=== PATIENT | male | born 1975 ===

== ENCOUNTER 2020-06-11 23:46 | Emergency (ER) | payer BC, SELFPAY ==
--- NOTE | ~2020-06-11 | XR_ITS ---
EXAMINATION: XR CHEST CLINICAL INFORMATION: Palpitations COMPARISON: 05/06/2019 TECHNIQUE: Frontal view of the chest was obtained. FINDINGS: No significant abnormality is noted involving the heart, lungs, mediastinum, bony thorax or soft tissues. XR/XR chest 1V IMPRESSION: Unremarkable examination.
[2020-06-11 23:59] VITALS: BP 174/88; PULSE 100; RESP 18; TEMP 36.3; O2SAT 98; BMI 26.6
--- NOTE | 2020-06-11 23:59 | ECG_ITS ---
Test Reason : HEART PALPITATIONS Blood Pressure : / mmHG Vent. Rate : 088 BPM Atrial Rate : 088 BPM P-R Int : 146 ms QRS Dur : 102 ms QT Int : 370 ms P-R-T Axes : 064 057 030 degrees QTc Int : 447 ms Normal sinus rhythm Normal ECG When compared with ECG of 19-NOV-2018 16:57, Non-specific change in ST segment in Inferior leads Referred By: Daya Almanzar Electronically Signed By:ROSA MARIA CANNON MD
--- NOTE | 2020-06-11 23:59 | ED.ARRPALP ---
HPI - Arrhythmia/Palpitations General Chief Complaint: Arrhythmia/Palpitations Stated Complaint: ?Irregular heartbeat Time Seen by Provider: 06/11/20 23:54 History of Present Illness complaint: skipped beats and palpitations Onset (ago): week(s) (1) Duration: intermittent Severity: moderate Context: occurred during rest and occurred during exertion Associated symptoms: chest pain and shortness of breath Related Data Previous Rx's Medication Instructions Recorded metoprolol succinate [Toprol XL] 12.5 mg PO DAILY #14 tab 06/12/20 Allergies Allergy/AdvReac Type Severity Reaction Status Date / Time No Known Allergies Allergy Verified 06/11/20 23:59 Review of Systems Review of Systems: Constitutional : No Weight loss, No Fever, No Chills ENT/Mouth : No sore throat, No Rhinorrhea Eyes: No Eye Pain, No Swelling Cardiovascular : pos Chest Pain, pos SOB, no Dyspnea on Exertion, No Orthopnea, No Edema, pos Palpitations Respiratory : No Cough, No Sputum Gastrointestinal : no Nausea, No Vomiting, No Diarrhea, No abdominal Pain, No Hematochezia, No Melena Genitourinary : No Dysuria, No Urinary Frequency Musculoskeletal : No joint pain, No Myalgias, No Joint Swelling Skin : No Skin Lesions, No rash Neuro : No Weakness, No Numbness, No Dizziness, No Headache Psych : No Anxiety/Panic, No Depression All other systems reviewed and are negative [facility] Past Medical History Attestation statement: The following information was validated with the patient. Medical History No active medical problems Social History Social History (Updated 06/12/20 @ 00:02 by Daya Almanzar DO) Smoking Status: Never smoker Use of substances other than those prescribed or required for medical reasons: No Advance Directives: No Physical Exam Vital Signs: Vital Signs: Last Vital Signs Temp 97.4 F 06/11/20 23:59 Pulse 97 06/12/20 00:45 Resp 19 06/12/20 00:45 BP 129/78 06/12/20 00:45 Pulse Ox 98 06/12/20 00:45 Body Mass Index 26.6 Appearance: Alert. Oriented X3. No acute distress. Anxious Eyes: Pupils equal, round and reactive to light. ENT: Pharynx normal. Neck: Normal inspection. Neck supple. CVS: Normal heart rate and rhythm. Pulses normal. Respiratory: No respiratory distress. Breath sounds normal. Abdomen: Soft and nontender. Skin: Skin warm and dry. Normal skin color. Normal skin turgor. Extremities: No lower extremity edema. No calf ttp Neuro: Oriented X 3. No motor deficit. No sensory deficit. Course Course Course Narrative: patient having frequent PVCs while in ED states he feels a thud given symptomatic will start on low dose bblocker and refer to cardiology MDM - Arrhythmia/Palpitations MDM Narrative Medical decision making narrative: 45 yo male with one week of intermittent palpitations worse today - some mild chest discomfort and dyspnea, states he feels his heart skips a beat - has had occ PVCs on tele during interview likely cause of his palpitations denies medications/ingestion/stress/caffeine usage - will obtain labs, CXR, ddimer, troponin x 1, possible start of bblocker if still symptomatic Lab Data Result diagrams: 06/12/20 00:05 06/12/20 00:05 Labs: Lab Results 06/12/20 06/12/20 06/12/20 Range/Units 00:05 00:05 00:05 WBC 7.0 (4.8-10.8) X10*3/uL RBC 5.07 (4.60-5.80) X10*6/uL Hgb 15.9 (14.0-18.0) g/dl Hct 44.9 (42-52) % MCV 88.6 (80-98) fL MCH 31.4 (27.0-33.0) pg MCHC 35.4 (31.0-36.0) g/dl RDW 11.2 (11.0-16.0) % Plt Count 248 (160-400) X10*3/uL MPV 9.9 (9.4-12.4) fL Immature Gran % (Auto) 0.1 (0.0-0.4) % Neut % (Auto) 53.9 (45-73) % Lymph % (Auto) 36.0 (20-40) % [place] % (Auto) 8.3 (2-11) % Eos % (Auto) 1.1 (0-4) % Baso % (Auto) 0.6 (0-2) % Lymph # (Auto) 2.5 (1.2-4.9) X10*3/uL [place] # (Auto) 0.6 (0.1-1.2) X10*3/uL Eos # (Auto) 0.1 (0.0-0.4) X10*3/uL Baso # (Auto) 0.0 (0.0-0.2) X10*3/uL Abs Immat Gran (auto) 0.01 (0.00-0.03) X10*3/uL Absolute Neuts (auto) 3.8 (2.0-8.3) X10*3/uL Absolute Nucleated RBC 0.000 (0.0-0.012) X10*3/uL Nucleated RBC % (auto) 0.0 (0.0-0.2) /100WBC D-Dimer < 200 NG/ML Sodium 137 (135-145) mmol/L Potassium 4.1 (3.3-5.1) mmol/L Chloride 99 (96-108) mmol/L Carbon Dioxide 28 (22-29) mmol/L Anion Gap 14 (12-20) BUN 20 H (9-16) mg/dL Creatinine 1.31 (0.5-1.4) mg/dL Estim Creat Clear Calc 66.5 Estimated GFR 59 Random Glucose 117 H (60-115) mg/dL Calcium 9.4 (8.4-10.2) mg/dL Magnesium 2.1 (1.6-2.6) mg/dL Troponin I High Sens (<3.5-35.0) ng/L B-Natriuretic Peptide (<100) pg/mL 06/12/20 Range/Units 00:05 WBC (4.8-10.8) X10*3/uL RBC (4.60-5.80) X10*6/uL Hgb (14.0-18.0) g/dl Hct (42-52) % MCV (80-98) fL MCH (27.0-33.0) pg MCHC (31.0-36.0) g/dl RDW (11.0-16.0) % Plt Count (160-400) X10*3/uL MPV (9.4-12.4) fL Immature Gran % (Auto) (0.0-0.4) % Neut % (Auto) (45-73) % Lymph % (Auto) (20-40) % [place] % (Auto) (2-11) % Eos % (Auto) (0-4) % Baso % (Auto) (0-2) % Lymph # (Auto) (1.2-4.9) X10*3/uL [place] # (Auto) (0.1-1.2) X10*3/uL Eos # (Auto) (0.0-0.4) X10*3/uL Baso # (Auto) (0.0-0.2) X10*3/uL Abs Immat Gran (auto) (0.00-0.03) X10*3/uL Absolute Neuts (auto) (2.0-8.3) X10*3/uL Absolute Nucleated RBC (0.0-0.012) X10*3/uL Nucleated RBC % (auto) (0.0-0.2) /100WBC D-Dimer NG/ML Sodium (135-145) mmol/L Potassium (3.3-5.1) mmol/L Chloride (96-108) mmol/L Carbon Dioxide (22-29) mmol/L Anion Gap (12-20) BUN (9-16) mg/dL Creatinine (0.5-1.4) mg/dL Estim Creat Clear Calc Estimated GFR Random Glucose (60-115) mg/dL Calcium (8.4-10.2) mg/dL Magnesium (1.6-2.6) mg/dL Troponin I High Sens < 3.5 (<3.5-35.0) ng/L B-Natriuretic Peptide < 10 (<100) pg/mL ECG Data Attestation: I personally reviewed and interpreted this ECG as follows: ECG interpretation date: 06/12/20 ECG interpretation time: 00:00 Interpretation: Rate: 88 Rhythm: NSR [place]: normal Normal P waves. Normal CIRO. Normal QRS complex. ST T wave : normal, no JAMAL qTC: normal no acute ischemia The study has been interpreted contemporaneously by me. . Discharge Plan Discharge Clinical Impression: Frequent PVCs Patient Disposition: Home, Self-Care Instructions: Premature Ventricular Contractions (ED) Additional Instructions: return to ED for any worsening symptoms or concerns will trial 2 weeks of medication to see if it helps, call your primary care so they can monitor you. Prescriptions: New metoprolol succinate [Toprol XL] 25 mg tablet extended release 24 hr 12.5 mg PO DAILY Qty: 14 RF: 0 Referrals: Marvin Gómez MD [Physician] - 1 week Stand Alone Forms: Work/School Release
[2020-06-12 00:10] LABS: MANUAL DIFF FLAG NO
[2020-06-12 00:16] LABS: Basophils Percent Auto 0.6 % (0-2); Eosinophils Absolute Auto 0.1 X10*3/uL (0.0-0.4); Eosinophils Percent Auto 1.1 % (0-4); Hematocrit 44.9 % (42-52); Hemoglobin 15.9 g/dl (14.0-18.0); Imm Gran Abs Auto 0.01 X10*3/uL (0.00-0.03); Imm Gran Pct Auto 0.1 % (0.0-0.4); Lymphocytes Absolute Auto 2.5 X10*3/uL (1.2-4.9); Mean Corpuscular HGB Conc 35.4 g/dl (31.0-36.0); Mean Corpuscular Hemoglobin 31.4 pg (27.0-33.0); Mean Corpuscular Volume 88.6 fL (80-98); Mean Platelet Volume 9.9 fL (9.4-12.4); Monocytes Absolute Auto 0.6 X10*3/uL (0.1-1.2); Monocytes Percent Auto 8.3 % (2-11); Neutrophils Absolute Auto 3.8 X10*3/uL (2.0-8.3); Neutrophils Percent Auto 53.9 % (45-73); Platelet Count 248 X10*3/uL (160-400); Red Blood Count 5.07 X10*6/uL (4.60-5.80); Red Cell Distribution Width 11.2 % (11.0-16.0)
[2020-06-12 00:30] LABS: D Dimer < 200 NG/ML
[2020-06-12 00:36] LABS: Anion Gap 14 (12-20); Blood Urea Nitrogen 20 mg/dL (9-16); Calcium 9.4 mg/dL (8.4-10.2); Carbon Dioxide 28 mmol/L (22-29); Chloride 99 mmol/L (96-108); Creatinine Clr Calc Pharmacy 66.5; Estimated Glomerular Filt Rate 59; Glucose Random 117 mg/dL (60-115); Magnesium 2.1 mg/dL (1.6-2.6); Potassium 4.1 mmol/L (3.3-5.1); Sodium 137 mmol/L (135-145)
[2020-06-12 00:41] LABS: B Type Natriuretic Peptide < 10 pg/mL (<100); Troponin-I High Sensitivity < 3.5 ng/L (<3.5-35.0)
[2020-06-12 00:45] VITALS: BP 129/78; PULSE 97; RESP 19; O2SAT 98
[2020-06-12 00:57] LABS: Thyroid Stimulating Hormone 3.95 uIU/mL (0.32-4.0)
[2020-06-12 01:09] VITALS: PULSE 76
== END 2020-06-12 01:20 | disposition home or self-care (01) ==
PROVIDERS: Emergency Provider Emergency Medicine; PCP Internal Medicine
DX: I49.3 Ventricular premature depolarization (principal); Z79.899 Other long term (current) drug therapy
CPT/HCPCS: 36415; 71045; 80048; 83735; 83880; 84443; 84484; 85025; 85379; 93005; 99283; 99284

== ENCOUNTER 2022-01-20 19:07 | Emergency (ER) | payer BC, SELFPAY ==
--- NOTE | ~2022-01-20 | US_ITS ---
EXAMINATION: US VENOUS ULTRASOUND WITH DOPPLER LOWER EXTREMITY, RIGHT CLINICAL INFORMATION: Right calf pain COMPARISON: None TECHNIQUE: Ultrasound of the deep veins is performed from the hip to the calf with compression sonography and color and pulse Doppler assessment. Spectral analysis with color-flow imaging is performed. FINDINGS: There is normal venous compression and respiratory variation and augmented flow. The visualized common femoral vein, superficial femoral vein, profunda femoral vein, popliteal vein, and the trifurcation region shows no evidence of deep venous thrombosis. The contralateral left common femoral vein appears normal. There is no significant popliteal fossa cyst. Large thrombosed superficial varicosities are seen in the right calf. If the patient's symptoms persist, followup ultrasound in 5 days 7 days might be of value to exclude proximal propagation from a non-visualized calf vein. US/US venous duplex LE RT IMPRESSION: * No DVT demonstrated in the right lower extremity. * Superficial thrombophlebitis with thrombosed right calf varices.
[2022-01-20 21:14] VITALS: BP 133/67; PULSE 81; RESP 18; TEMP 36.9; O2SAT 99; BMI 25.0
[2022-01-20 21:27] LABS: Hematocrit 42.1 % (42.0-52.0); Hemoglobin 14.8 g/dl (14.0-18.0); Mean Corpuscular HGB Conc 35.2 g/dl (31.0-36.0); Mean Corpuscular Hemoglobin 31.2 pg (27.0-33.0); Mean Corpuscular Volume 88.6 fL (80.0-98.0); Mean Platelet Volume 9.8 fL (9.4-12.4); Platelet Count 228 X10*3/uL (160-400); Red Blood Count 4.75 X10*6/uL (4.60-5.80); Red Cell Distribution Width 11.7 % (11.0-16.0); White Blood Count 6.7 X10*3/uL (4.8-10.8)
--- NOTE | 2022-01-20 21:30 | ED.GENADULT ---
HPI - General Adult General Chief complaint: General Medical Stated complaint: right calf pain Time Seen by Provider: 01/20/22 19:22 History of Present Illness HPI narrative: Patient is a 47-year-old male with a being varicose veins. Presents today with having pain to the right calf area. Slight area of redness warm to touch. Patient is from home. No history of blood clots in the past. Positive history of hypertension no history of shortness of breath no chest pain no dizziness no syncope. Patient not on any blood thinners. Related Data Previous Rx's Medication Instructions Recorded metoprolol succinate 25 mg 12.5 mg PO DAILY #14 tabs 06/12/20 tablet,extended release 24 hr (Toprol XL) ibuprofen 400 mg tablet 400 mg PO Q6H PRN pain #20 tabs 01/20/22 Allergies Allergy/AdvReac Type Severity Reaction Status Date / Time No Known Allergies Allergy Verified 06/11/20 23:59 Review of Systems Review of Systems: Positive pain to the right calf Yes all other systems are reviewed and are negative PMFSH Past Medical History Attestation statement: The following information was validated with the patient. Medical History No active medical problems Social History Social History Alcohol intake: never Advance Directives: No Advance Directives Information Provided: No Physical Exam ED Vital Signs: Vital Signs - 24 hr 01/20/22 21:14 01/20/22 21:57 Temperature 98.4 F 98.3 F Pulse Rate 81 78 Respiratory Rate 18 18 Blood Pressure 133/67 130/73 Pulse Oximetry 99 98 Oxygen Delivery Method Room Air Room Air BMI result Body Mass Index 25.0 Appearance: Alert. Oriented X3. No acute distress. Eyes: Pupils equal, round and reactive to light. ENT: Pharynx normal. Neck: Normal inspection. Neck supple. No lymph nodes noted. No crepitus CVS: Normal heart rate and rhythm. Pulses normal. Normal S1 and S2 Respiratory: No respiratory distress. Breath sounds normal. No Wheezing. No rales Abdomen: Soft and nontender. No rigidity. No distention. good BS x4 Skin: Skin warm and dry. Normal skin color. Normal skin turgor. Examination of the right lower extremity showed minimal redness over the calf in an area that appears to have a superficial vein. It is approximately 3 cm x 3 cm in size slightly red indurated. There is no calf tenderness. Calf size equal bilaterally. Distal pulses intact. Skin intact. Motor intact Extremities: No lower extremity edema. Neurovascular intact to all extremities. No Lacerations. No Rash Neuro: Oriented X 3. No motor deficit. No sensory deficit. Moving all extermities. No slurred speech Medical Decision Making MDM Narrative Medical decision making narrative: Doppler ultrasound of the right lower extremity was grossly negative for any acute evidence of DVT. Superficial thrombophlebitis was noted. We will go ahead have patient elevate the lower extremity warm compresses and have patient use NSAIDs. In stable condition. Lab Data Lab results reviewed: Yes I reviewed the patient's lab results. Result diagrams: 01/20/22 21:15 01/20/22 21:15 Labs: Lab Results 01/20/22 01/20/22 Range/Units 21:15 21:15 WBC 6.7 (4.8-10.8) X10*3/uL RBC 4.75 (4.60-5.80) X10*6/uL Hgb 14.8 (14.0-18.0) g/dl Hct 42.1 (42.0-52.0) % MCV 88.6 (80.0-98.0) fL MCH 31.2 (27.0-33.0) pg MCHC 35.2 (31.0-36.0) g/dl RDW 11.7 (11.0-16.0) % Plt Count 228 (160-400) X10*3/uL MPV 9.8 (9.4-12.4) fL Absolute Nucleated RBC 0.000 (0.0-0.012) X10*3/uL Nucleated RBC % (auto) 0.0 (0.0-0.2) /100WBC Sodium 142 (135-145) mmol/L Potassium 4.3 (3.3-5.1) mmol/L Chloride 101 (96-108) mmol/L Carbon Dioxide 32 H (22-29) mmol/L Anion Gap 13 (12-20) BUN 12 (9-16) mg/dL Creatinine 1.20 (0.5-1.4) mg/dL Estim Creat Clear Calc 71.1 Estimated GFR > 60 Random Glucose 118 H (60-115) mg/dL Calcium 9.3 (8.4-10.2) mg/dL Total Bilirubin 0.6 (0.0-1.0) mg/dL AST 18 (5-37) U/L ALT 16 (0-40) U/L Alkaline Phosphatase 77 (39-117) U/L Total Protein 7.2 (6.5-8.0) g/dL Albumin 4.5 (3.5-5.0) g/dL Discharge Plan Discharge Clinical Impression: Superficial thrombophlebitis Patient Disposition: Home, Self-Care Instructions: Superficial Thrombophlebitis (ED) Prescriptions: New ibuprofen 400 mg tablet 400 mg PO Q6H PRN (Reason: pain) Qty: 20 0RF No Action metoprolol succinate [Toprol XL] 25 mg tablet extended release 24 hr 12.5 mg PO DAILY Qty: 14 0RF Referrals: Andrew Sol MD [Primary Care Provider] -
[2022-01-20 21:51] LABS: Alanine Aminotransferase 16 U/L (0-40); Albumin Level 4.5 g/dL (3.5-5.0); Alkaline Phosphatase 77 U/L (39-117); Anion Gap 13 (12-20); Aspartate Amino Transferase 18 U/L (5-37); Bilirubin Total 0.6 mg/dL (0.0-1.0); Blood Urea Nitrogen 12 mg/dL (9-16); Calcium 9.3 mg/dL (8.4-10.2); Carbon Dioxide 32 mmol/L (22-29); Chloride 101 mmol/L (96-108); Creatinine Clr Calc Pharmacy 71.1; Estimated Glomerular Filt Rate > 60; Glucose Random 118 mg/dL (60-115); Potassium 4.3 mmol/L (3.3-5.1); Sodium 142 mmol/L (135-145); Total Protein 7.2 g/dL (6.5-8.0)
[2022-01-20 21:57] VITALS: BP 130/73; PULSE 78; RESP 18; TEMP 36.8; O2SAT 98
== END 2022-01-20 22:26 | disposition home or self-care (01) ==
PROVIDERS: Emergency Provider Emergency Medicine Emergency Medical Services; PCP Internal Medicine
DX: I80.01 Phlebitis and thrombophlebitis of superficial vessels of right lower extremity (principal); M79.661 Pain in right lower leg; I10 Essential (primary) hypertension
CPT/HCPCS: 36415; 80053; 85027; 93971; 99283; 99284

== ENCOUNTER 2022-03-09 16:11 | Emergency (ER) | payer SELFPAY ==
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
[2022-03-09 16:33] VITALS: BP 146/80; BP 156/86; PULSE 100; PULSE 94; RESP 16; TEMP 36.7; O2SAT 100; O2SAT 99; BMI 25.0
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
--- NOTE | 2022-03-09 17:00 | ECG_ITS ---
Test Reason : CHEST PAIN Blood Pressure : / mmHG Vent. Rate : 077 BPM Atrial Rate : 077 BPM P-R Int : 150 ms QRS Dur : 106 ms QT Int : 380 ms P-R-T Axes : 055 029 027 degrees QTc Int : 430 ms Normal sinus rhythm with sinus arrhythmia Normal ECG When compared with ECG of 11-JUN-2020 23:57, No significant change was found Referred By: Nuha Ramos Electronically Signed By:GINGER KILPATRICK MD
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
[2022-03-09] MEDS: Cyclobenzaprine HCl 5 MG TABLET PO (17:37)
[2022-03-09] MEDS: Ibuprofen 600 MG TABLET PO (17:38)
== END 2022-03-09 19:13 | disposition home or self-care (01) ==
PROVIDERS: Emergency Provider Emergency Medicine; PCP Internal Medicine
DX: S20.219A Contusion of unspecified front wall of thorax, initial encounter (principal); V43.53XA Car driver injured in collision with pick-up truck in traffic accident, initial encounter; W22.11XA Striking against or struck by driver side automobile airbag, initial encounter; Y93.89 Activity, other specified; Y92.411 Interstate highway as the place of occurrence of the external cause; Y99.9 Unspecified external cause status
CPT/HCPCS: 70450; 71045; 93005; 99284

== ENCOUNTER 2023-05-01 06:28 | Emergency (ER) | payer BC, SELFPAY ==
[2023-05-01 07:10] VITALS: BP 164/84; PULSE 81; RESP 18; TEMP 36.9; O2SAT 96; BMI 27.9
[2023-05-01 07:59] LABS: Influenza A PCR NEGATIVE (Negative); Influenza B PCR NEGATIVE (Negative); Resp Syncy Virus RNA Qual PCR NEGATIVE (Negative); SARS COV2 PCR INHOUSE NEGATIVE (Negative)
[2023-05-01 09:17] VITALS: BP 130/82; PULSE 76; RESP 16; TEMP 36.6; O2SAT 97
--- NOTE | 2023-05-01 09:21 | ED_ITS ---
HPI - General Adult General Chief complaint: General Medical Stated complaint: flu like symptoms? Time Seen by Provider: 05/01/23 09:04 Source: patient, RN notes reviewed and old records reviewed Mode of arrival: ambulatory History of Present Illness HPI narrative: 48-year-old male with no significant past medical history presenting to the ED complaining of chills, lethargy/fatigue, generalized body weakness x this morning after waking. Denies cough, chest pains shortness of breath, pedal edema, focal weakness, abdominal pain, nausea/vomiting. Admits sick recently with viral syndrome and COVID 3 weeks ago Related Data Previous Rx's Medication Instructions Recorded metoprolol succinate 25 mg 12.5 mg (1/2 x 25 mg) PO DAILY #14 06/12/20 tablet,extended release 24 hr tabs (Toprol XL) ibuprofen 400 mg tablet 400 mg PO Q6H PRN pain #20 tabs 01/20/22 cyclobenzaprine 5 mg tablet 5 mg PO TID PRN muscle spasm #7 03/09/22 tabs ibuprofen 600 mg tablet 600 mg PO TID PRN pain #14 tabs 03/09/22 Allergies Allergy/AdvReac Type Severity Reaction Status Date / Time No Known Allergies Allergy Verified 05/01/23 07:10 Review of Systems Review of Systems: Constitutional: No Fever, + Chills, +malaise, +fatigue ENT/Mouth: No Ear Pain, No Nasal Congestion, No Sinus Pain, No Hoarseness, No sore throat, No Rhinorrhea, No Swallowing Difficulty Cardiovascular: No Chest Pain, No SOB Respiratory: No Cough, No Sputum, No Wheezing Gastrointestinal: No Nausea, No Vomiting, No Diarrhea, No Constipation, No Abdominal pain Musculoskeletal: No joint pain, + Myalgias, No Joint Swelling Skin: No Skin Lesions, No rash Neuro: + Weakness, No Numbness, No Paresthesias Yes all other systems are reviewed and are negative Constitutional: Constitutional: Reports as per [facility] Past Medical History Attestation statement: The following information was validated with the patient. Source: old records reviewed Medical History No active medical problems Social History Social History Alcohol intake: current Alcohol intake frequency: holidays/special occasions only Advance Directives: No Physical Exam ED Vital Signs: Vital Signs - 24 hr 05/01/23 07:10 05/01/23 09:17 Temperature 98.4 F 97.8 F Pulse Rate 81 76 Respiratory Rate 18 16 Blood Pressure 164/84 H 130/82 Pulse Oximetry 96 97 Oxygen Delivery Method Room Air Room Air BMI result Body Mass Index 27.9 Const General: cooperative, healthy appearing and no acute distress Orientation/consciousness: patient oriented x3 Limitations: no limitations HENMT Head: Yes normal to inspection and Yes atraumatic Ears: hearing grossly normal bilaterally General nose exam: Normal external nose present Face and sinus: Yes normal facial exam Mouth: Normal oral and palatal mucosa present Throat: Yes posterior oropharynx normal Eyes General: appearance normal, both eyes and all related structures EOM: EOMs intact bilaterally Neck Neck: Yes normal visual inspection and Yes no meningeal signs Resp Effort & Inspection: normal respiratory effort and no respiratory distress Auscultation: clear to auscultation bilaterally and no wheezes Cardio Rate: regular rate Heart sounds: S1 normal heart sound present and S2 normal heart sound present GI Inspection: Yes normal to inspection Palpation (GI): Soft to palpation, nontender, no guarding and not rigid Skin Rashes: no rashes Wounds: no wounds Neuro General: patient oriented x3, tone normal and no meningeal signs Cranial nerves: Yes CN's II-XII intact bilaterally Gait exam (Neuro): Normal gait present Extrem General: Yes normal to inspection Course Course Course Narrative: -COVID/flu/RSV negative Results discussed with patient including worrisome signs and symptoms and strict return precautions, and when to return to the emergency department. They verbalized understanding and feel safe for discharge at this time. Medical Decision Making Medical Decision Making [facility] Narrative: 48-year-old male with no significant past medical history presenting to the ED complaining of chills, lethargy/fatigue, generalized body weakness x this morning after waking. On exam vital signs stable, NAD, nontoxic appearing, phy sical exam unremarkable. Concern for viral illness. Low suspicion for ACS/PE or metabolic abnormalities. Unlikely CVA Plan: Viral testing Please refer to course for remaining clinical decision making, interpretation of labs/imaging results, and discussions with consultants and/or family members. Differential Diagnosis Differential Diagnoses: The differential diagnosis associated with the presentation includes As above Lab Data [facility] Lab Attestation statement: I reviewed the patient's lab results. Labs: Lab Results 05/01/23 Range/Units 07:13 Influenza Type A (PCR) NEGATIVE (Negative) Influenza Type B (PCR) NEGATIVE (Negative) RSV RNA Qual (PCR) NEGATIVE (Negative) SARS-CoV-2 RNA (RT-PCR) NEGATIVE (Negative) External Record Review External record reviewed: Inpatient record, Office record, Outpatient record, Prior outpatient labs, Prior outpatient radiology, Primary care record and Outside ED record Tests considered The following testing was considered but not selected: As above Discharge Plan Discharge Clinical Impression: Acute viral syndrome Patient Disposition: Home, Self-Care Instructions: Viral Syndrome (ED) Additional Instructions: You have a virus No antibiotics are indicated at this time Make sure you are staying hydrated. Drink plenty of fluids. Rest Alternate Tylenol and Motrin at home as needed for body aches and fever Follow-up with your doctor. If symptoms persist or worsen return to the emergency department *If you are a child & not tolerating liquid or urinating for more than 6 hours, or fevers are uncontrolled with medications at home, return to the emergency department* Prescriptions: No Action metoprolol succinate [Toprol XL] 25 mg tablet extended release 24 hr 12.5 mg PO DAILY Qty: 14 0RF ibuprofen 400 mg tablet 400 mg PO Q6H PRN (Reason: pain) Qty: 20 0RF ibuprofen 600 mg tablet 600 mg PO TID PRN (Reason: pain) Qty: 14 0RF cyclobenzaprine 5 mg tablet 5 mg PO TID PRN (Reason: muscle spasm) Qty: 7 0RF Referrals: Physician,Unknown J [Primary Care Provider] -
== END 2023-05-01 09:41 | disposition home or self-care (01) ==
PROVIDERS: Emergency Provider Emergency Medicine
DX: B34.9 Viral infection, unspecified (principal); Z20.822 Contact with and (suspected) exposure to COVID-19; Z20.828 Contact with and (suspected) exposure to other viral communicable diseases
CPT/HCPCS: 0241U; 99283

== ENCOUNTER 2023-08-11 11:07 | Emergency (ER) | payer BC, SELFPAY ==
--- NOTE | 2023-08-11 11:16 | ECG_ITS ---
Test Reason : hear palpatations/dizziness Blood Pressure : / mmHG Vent. Rate : 093 BPM Atrial Rate : 093 BPM P-R Int : 148 ms QRS Dur : 102 ms QT Int : 368 ms P-R-T Axes : 064 041 004 degrees QTc Int : 457 ms Normal sinus rhythm Normal ECG When compared with ECG of 09-MAR-2022 17:20, No significant change was found Referred By: Generic ED Physician Electronically Signed By:Jhonatan Coleman
--- NOTE | 2023-08-11 11:31 | ED_ITS ---
HPI - Arrhythmia/Palpitations General Chief Complaint: Dizziness Stated Complaint: Heart palpitations, dizziness Time Seen by Provider: 08/11/23 16:37 Source: patient Mode of arrival: ambulatory History of Present Illness HPI narrative: 48-year-old male without significant past medical history other than vertigo, patient reports that he has been worked up by Neurology and has also had cardiac studies but he self reports that these were negative. Patient states that over the past 3-4 years he has not use the meclizine because it does not seem to help. When I asked about the Lopressor he was unsure what medication I was referring to and then said wall that was for palpitations and I did not have any palpitations today, however triage note outlines the patient did have complaints of dizziness and palpitations that started approximately 10:00 o'clock this morning. Patient reports that he felt lightheaded this is not been associated with any constitutional symptoms such as fever, chills, nausea or vomiting, sick contacts and has not been associated with any additional symptoms such as ataxic gait/visual disturbance or unilateral numbness/tingling/weakness. Related Data Previous Rx's ?Medication ?Instructions ?Recorded metoprolol succinate 25 mg 12.5 mg (1/2 x 25 mg) PO DAILY #14 06/12/20 tablet,extended release 24 hr tabs (Toprol XL) ibuprofen 400 mg tablet 400 mg PO Q6H PRN pain #20 tabs 01/20/22 cyclobenzaprine 5 mg tablet 5 mg PO TID PRN muscle spasm #7 03/09/22 tabs ibuprofen 600 mg tablet 600 mg PO TID PRN pain #14 tabs 03/09/22 Allergies Allergy/AdvReac Type Severity Reaction Status Date / Time No Known Allergies Allergy Verified 08/11/23 11:35 Review of Systems 2 Review of Systems: Pertinent positives and negatives as stated in HPI [facility] Past Medical History Source: nursing notes reviewed Medical History No active medical problems Social History Social History Alcohol intake: current Alcohol intake frequency: holidays/special occasions only Advance Directives: No Physical Exam 2 Vital Signs: Vital Signs: Last Vital Signs Temp 98 F 08/11/23 11:34 Pulse 88 08/11/23 17:06 Resp 18 08/11/23 11:34 BP 143/90 H 08/11/23 17:06 Pulse Ox 99 08/11/23 11:34 O2 Del Method Room Air 08/11/23 11:34 BMI result Body Mass Index 28.2 VITAL SIGNS: Reviewed. GENERAL: Well developed, well nourished, in no acute distress. HEAD: Normocephalic/atraumatic EYES: PERRLA, EOMI, no nystagmus EARS: Ext canals without abnormality, TMs non-bulging and non-erythematous NOSE: Nares patent bilateral OROPHARYNX: no oral lesions noted, posterior pharynx clear and non-erythematous without noted tonsillar enlargement/erythema/exudates NECK: Supple, no adenopathy LUNGS: Normal breath sounds. No adventitious sounds or accessory muscle use. SpO2<99> CARDIOVASCULAR: Regular rate and rhythm without noted murmurs, no JVD or lower extremity edema. ABDOMEN: Soft, non-tender, non-distended with bowel sounds. MUSCULOSKELETAL: No tenderness, deformities, or effusions noted on gross inspection. EXTREMITIES: No cyanosis, clubbing or edema. SKIN: Inspection of the skin reveals no rashes NEUROLOGIC: Alert and oriented x 4. Strength and sensation to light touch were grossly intact x 4, no facial asymmetry, no pronator drift, cranial nerves 2-12 are grossly intact, pass pointing is intact, heel to gunn is intact, patient ambulates with a steady gait, no truncal ataxia. Course Course Course Narrative: This is a Rapid Medical Examination (RME) in triage, full HPI, ROS, assessment and plan per primary provider in the Main ED. 48 yo male presenting to the ER for evaluation of dizziness & lightheadedness that started when he was kneeling down at work. Worsened when he stool up and began to have palpitations and racing heart. History of vertigo. Feels off balance when he moves his head. +nausea. Palpitations now resolved. No SOB or chest pain. HR 90s in triage with elevated BP 170/108, not on BP meds. Plan: EKG, labs Medical Decision Making Medical Decision Making [facility] Narrative: 48-year-old male with history and clinical presentation, DDX: Vertigo/lightheadedness, no focal deficits, no clinical concerns for posterior stroke at this time, patient further endorse that he has started going to the gym and has been taking to multi vitamins a day but is unsure of the ingredients. I reviewed all investigations and hematologic indices are negative for leukocytosis/anemia/thrombocytopenia. Chemistry indices are negative for CECI/electrolytes/liver enzyme derangements and high sensitivity troponin is undetectable without any acute EKG changes. Patient denies chest pain/palpitations/shortness of breath. Orthostatics were negative. My interpretation is that patient may be experiencing side effects from contents within the multivitamins, this could be a simple BPPV/lightheadedness, there is no evidence to suggest electrolyte or infectious etiologies, there are no focal deficits and I have no suspicious for posterior stroke-like symptoms, I do note the patient's initial blood pressure on arrival to the emergency room was elevated and he is strongly encouraged to follow-up with his primary care doctor for re-evaluation. Differential Diagnosis Differential Diagnoses: The differential diagnosis associated with the presentation includes Please see the discussion above Admission/Observation Consideration of admission/observation: Escalation of care including admission/observation considered Please see the discussion above Lab Data [facility] Lab Attestation statement: I reviewed the patient's lab results. Please see the discussion above 08/11/23 13:00 08/11/23 13:00 Labs: Lab Results 08/11/23 Range/Units 13:00 WBC 10.4 (4.8-10.8) X10*3/uL RBC 5.14 (4.60-5.80) X10*6/uL Hgb 15.5 (14.0-18.0) g/dl Hct 43.8 (42.0-52.0) % MCV 85.2 (80.0-98.0) fL MCH 30.2 (27.0-33.0) pg MCHC 35.4 (31.0-36.0) g/dl RDW 12.0 (11.0-16.0) % Plt Count 239 (160-400) X10*3/uL MPV 9.9 (9.4-12.4) fL Immature Gran % (Auto) 0.7 H (0.0-0.4) % Neut % (Auto) 84.5 H (45-73) % Lymph % (Auto) 9.0 L (20-40) % [place] % (Auto) 5.0 (2-11) % Eos % (Auto) 0.3 (0-4) % Baso % (Auto) 0.5 (0-2) % Lymph # (Auto) 0.9 L (1.2-4.9) X10*3/uL [place] # (Auto) 0.5 (0.1-1.2) X10*3/uL Eos # (Auto) 0.0 (0.0-0.4) X10*3/uL Baso # (Auto) 0.1 (0.0-0.2) X10*3/uL Abs Immat Gran (auto) 0.07 H (0.00-0.03) X10*3/uL Absolute Neuts (auto) 8.8 H (2.0-8.3) x10*3/uL Absolute Nucleated RBC 0.000 (0.0-0.012) X10*3/uL Nucleated RBC % (auto) 0.0 (0.0-0.2) /100WBC Sodium 138 (135-145) mmol/L Potassium 3.9 (3.3-5.1) mmol/L Chloride 104 (96-108) mmol/L Carbon Dioxide 26 (22-29) mmol/L Anion Gap 12 (12-20) BUN 17 H (9-16) mg/dL Creatinine 1.07 (0.5-1.4) mg/dL Estim Creat Clear Calc 86.3 Estimated GFR > 60 Random Glucose 130 H (60-115) mg/dL Calcium 9.6 (8.4-10.2) mg/dL Magnesium 2.0 (1.6-2.6) mg/dL Total Bilirubin 0.6 (0.0-1.0) mg/dL Direct Bilirubin 0.2 (0.0-0.5) mg/dL AST 23 (5-37) U/L ALT 24 (0-40) U/L Alkaline Phosphatase 72 (39-117) U/L Troponin I High Sens < 2.7 (<3.5-35.0) ng/L Total Protein 7.6 (6.5-8.0) g/dL Albumin 4.5 (3.5-5.0) g/dL Independent Interpretation I performed an independent interpretation of an: EKG Interpretation: Normal sinus rhythm, HR-93, no STEMI, LA/QRS/QTC is within normal limits. External Record Review External record reviewed: Outpatient record, Prior outpatient labs and Prior outpatient radiology Critical Care Time Critical Care Time Critical Care Time: Yes Total Critical Care Time: 30 Attestation: I personally attest to this time spent taking care of the patient. Discharge Plan Discharge Clinical Impression: Lightheadedness, Vertigo, Elevated blood pressure reading Patient Disposition: Home, Self-Care Instructions: Dizziness (ED), Vertigo (ED) Additional Instructions: 1. I recommend stopping the multivitamins and increasing your hydration. 2. Your workup today was otherwise negative and I encourage follow-up with your primary care doctor. Return to the ER for any worsening symptoms. Prescriptions: No Action metoprolol succinate [Toprol XL] 25 mg tablet extended release 24 hr 12.5 mg PO DAILY Qty: 14 0RF ibuprofen 400 mg tablet 400 mg PO Q6H PRN (Reason: pain) Qty: 20 0RF ibuprofen 600 mg tablet 600 mg PO TID PRN (Reason: pain) Qty: 14 0RF cyclobenzaprine 5 mg tablet 5 mg PO TID PRN (Reason: muscle spasm) Qty: 7 0RF Referrals: Andrew Sol MD [Primary Care Provider] - Print Language: Bengali
[2023-08-11 11:34] VITALS: BP 170/108; PULSE 99; RESP 18; TEMP 36.6; O2SAT 99; BMI 28.2
[2023-08-11 13:04] LABS: MANUAL DIFF FLAG NO
[2023-08-11 13:06] LABS: Basophils Absolute Auto 0.1 X10*3/uL (0.0-0.2); Basophils Percent Auto 0.5 % (0-2); Eosinophils Percent Auto 0.3 % (0-4); Hematocrit 43.8 % (42.0-52.0); Hemoglobin 15.5 g/dl (14.0-18.0); Imm Gran Abs Auto 0.07 X10*3/uL (0.00-0.03); Imm Gran Pct Auto 0.7 % (0.0-0.4); Lymphocytes Absolute Auto 0.9 X10*3/uL (1.2-4.9); Mean Corpuscular HGB Conc 35.4 g/dl (31.0-36.0); Mean Corpuscular Hemoglobin 30.2 pg (27.0-33.0); Mean Corpuscular Volume 85.2 fL (80.0-98.0); Mean Platelet Volume 9.9 fL (9.4-12.4); Monocytes Absolute Auto 0.5 X10*3/uL (0.1-1.2); Neutrophils Absolute Auto 8.8 x10*3/uL (2.0-8.3); Neutrophils Percent Auto 84.5 % (45-73); Platelet Count 239 X10*3/uL (160-400); Red Blood Count 5.14 X10*6/uL (4.60-5.80); White Blood Count 10.4 X10*3/uL (4.8-10.8)
[2023-08-11 13:20] LABS: Alanine Aminotransferase 24 U/L (0-40); Albumin Level 4.5 g/dL (3.5-5.0); Alkaline Phosphatase 72 U/L (39-117); Anion Gap 12 (12-20); Aspartate Amino Transferase 23 U/L (5-37); Bilirubin Direct 0.2 mg/dL (0.0-0.5); Bilirubin Total 0.6 mg/dL (0.0-1.0); Blood Urea Nitrogen 17 mg/dL (9-16); Calcium 9.6 mg/dL (8.4-10.2); Carbon Dioxide 26 mmol/L (22-29); Chloride 104 mmol/L (96-108); Creatinine Clr Calc Pharmacy 86.3; Estimated Glomerular Filt Rate > 60; Glucose Random 130 mg/dL (60-115); Potassium 3.9 mmol/L (3.3-5.1); Sodium 138 mmol/L (135-145); Total Protein 7.6 g/dL (6.5-8.0)
[2023-08-11 13:27] LABS: Troponin-I High Sensitivity < 2.7 ng/L (<3.5-35.0)
[2023-08-11 17:03] VITALS: BP 146/82; PULSE 86
[2023-08-11 17:05] VITALS: BP 148/94; PULSE 84
[2023-08-11 17:06] VITALS: BP 143/90; PULSE 88
== END 2023-08-11 17:51 | disposition home or self-care (01) ==
PROVIDERS: Physician Assistant; Emergency Provider Student in an Organized Health Care Education/Training Program; PCP Internal Medicine
DX: I49.9 Cardiac arrhythmia, unspecified (principal); R00.2 Palpitations; R42 Dizziness and giddiness; R03.0 Elevated blood-pressure reading, without diagnosis of hypertension; Z79.899 Other long term (current) drug therapy
CPT/HCPCS: 36415; 80048; 80076; 83735; 84484; 85025; 93005; 99283

== ENCOUNTER → 2023-08-11 11:16 | Outpatient (BNV) | payer BC, SELFPAY | PROVIDERS: Emergency Provider Student in an Organized Health Care Education/Training Program; PCP Internal Medicine; Visit Provider Internal Medicine Cardiovascular Disease | DX: R00.2 Palpitations (principal) | CPT/HCPCS: 93010 ==